=== PATIENT | male | born 1960 | race Caucasian/White ===

== ENCOUNTER → 2021-09-12 | Outpatient (CLI) | payer OTHER ==
[2021-09-12 16:59] LABS: BASOPHILS ABSOLUTE AUTO 0.06 K/mm3 (0.00-0.23); BASOPHILS PERCENT AUTO 1 % (0-2); EOSINOPHILS ABSOLUTE AUTO 0.09 K/mm3 (0.00-0.68); EOSINOPHILS PERCENT AUTO 1 % (0-6); Hematocrit 44.3 % (37.0-53.0); Hemoglobin 15.2 g/dL (13.5-17.5); IMMATURE GRAN ABSOLUTE AUTO 0.02 K/mm3 (0.00-0.10); IMMATURE GRAN PERCENT AUTO 0 % (0-1); LYMPHOCYTES ABSOLUTE AUTO 2.83 K/mm3 (0.84-5.20); LYMPHOCYTES PERCENT AUTO 34 % (21-46); MONOCYTES ABSOLUTE AUTO 0.43 K/mm3 (0.16-1.47); MONOCYTES PERCENT AUTO 5 % (4-13); Mean Corpuscular HGB 29.5 pg (26.0-34.0); Mean Corpuscular HGB Conc 34.3 g/dL (31.5-36.5); Mean Corpuscular Volume 86 fL (80-100); Mean Platelet Volume 11.2 fL (9.1-12.4); NEUTROPHILS ABSOLUTE AUTO 4.99 K/mm3 (1.96-9.15); NEUTROPHILS PERCENT AUTO 59 % (41-73); Platelet Count 268 K/mm3 (150-400); RDW Coefficient Variation 12.8 % (11.7-14.2); Red Blood Cell Count 5.15 M/mm3 (4.30-5.90); White Blood Cell Count 8.42 K/mm3 (4.00-11.30)
[2021-09-12 19:12] LABS: Alanine Aminotransfer (ALT/SGP 27 U/L (12-78); Albumin/Globulin Ratio 0.9 (0.8-1.8); Alk Phos 117 U/L (50-136); Anion Gap 5 mmol/L (6-16); Aspartate Aminotrans (AST/SGOT 16 U/L (12-37); Bilirubin, Total 0.5 mg/dL (0.1-1.0); Blood Urea Nitrogen 15 mg/dL (8-24); Bun/Creatinine Ratio 18.8 (12.0-20.0); CHOL/HDL RATIO 4.6; CO2, Blood 25 mmol/L (21-32); Calcium, Blood 9.7 mg/dL (8.5-10.1); Chloride, Blood 105 mmol/L (98-108); Cholesterol 261 mg/dL (50-200); Globulin, Blood 4.3 g/dL (2.2-4.0); Glomerular Filtration Rate 99 (60-); Glucose, Blood 163 mg/dL (70-99); HDL Cholesterol 57 mg/dL (>39); LDL/HDL RATIO 3.1; Low Density Lipoprotein Chol 178 mg/dL (0-110); Potassium, Blood 4.1 mmol/L (3.5-5.5); Sodium, Blood 135 mmol/L (136-145); Total Protein, Blood 8.3 g/dL (6.4-8.2); Triglycerides 130 mg/dL (30-160); Very Low Density Lipoprot Chol 26 mg/dL (6-32)
== END | disposition home or self-care (01) ==
LOC: LAB SHORT 12:21 → LAB 12:21
PROVIDERS: Family Medicine
DX: Z00.00 Encounter for general adult medical examination without abnormal findings (principal); Z13.6 Encounter for screening for cardiovascular disorders; E11.65 Type 2 diabetes mellitus with hyperglycemia
CPT/HCPCS: 80053; 80061; 85025

== ENCOUNTER → 2022-07-15 | Outpatient (CLI) | payer OTHER ==
[2022-07-15 15:45] LABS: BASOPHILS ABSOLUTE AUTO 0.07 K/mm3 (0.00-0.23); BASOPHILS PERCENT AUTO 1 % (0-2); EOSINOPHILS ABSOLUTE AUTO 0.16 K/mm3 (0.00-0.68); EOSINOPHILS PERCENT AUTO 2 % (0-6); Hematocrit 39.3 % (37.0-53.0); Hemoglobin 13.2 g/dL (13.5-17.5); IMMATURE GRAN ABSOLUTE AUTO 0.03 K/mm3 (0.00-0.10); IMMATURE GRAN PERCENT AUTO 0 % (0-1); LYMPHOCYTES ABSOLUTE AUTO 2.32 K/mm3 (0.84-5.20); LYMPHOCYTES PERCENT AUTO 29 % (21-46); MONOCYTES ABSOLUTE AUTO 0.45 K/mm3 (0.16-1.47); MONOCYTES PERCENT AUTO 6 % (4-13); Mean Corpuscular HGB 29.9 pg (26.0-34.0); Mean Corpuscular HGB Conc 33.6 g/dL (31.5-36.5); Mean Corpuscular Volume 89 fL (80-100); Mean Platelet Volume 11.8 fL (9.1-12.4); NEUTROPHILS ABSOLUTE AUTO 4.98 K/mm3 (1.96-9.15); NEUTROPHILS PERCENT AUTO 62 % (41-73); Platelet Count 280 K/mm3 (150-400); RDW Coefficient Variation 13.2 % (11.7-14.2); RDW Standard Deviation 43.3 fL (35.1-46.3); Red Blood Cell Count 4.42 M/mm3 (4.30-5.90); White Blood Cell Count 8.01 K/mm3 (4.00-11.30)
[2022-07-15 15:51] LABS: Albumin, Blood 3.6 g/dL (3.4-5.0); Alk Phos 110 U/L (50-136); Anion Gap 5 mmol/L (6-16); Aspartate Aminotrans (AST/SGOT 16 U/L (12-37); Bilirubin, Total 0.5 mg/dL (0.1-1.0); Blood Urea Nitrogen 19 mg/dL (8-24); CHOL/HDL RATIO 4.6; CO2, Blood 25 mmol/L (21-32); Calcium, Blood 9.2 mg/dL (8.5-10.1); Chloride, Blood 107 mmol/L (98-108); Cholesterol 221 mg/dL (50-200); Globulin, Blood 3.7 g/dL (2.2-4.0); Glucose, Blood 389 mg/dL (70-99); HDL Cholesterol 48 mg/dL (>39); LDL/HDL RATIO 2.8; Low Density Lipoprotein Chol 135 mg/dL (0-110); PSA, %Free 18.1 %; PSA, Free 0.394 ng/mL; Potassium, Blood 4.3 mmol/L (3.5-5.5); Sodium, Blood 137 mmol/L (136-145); Total Protein, Blood 7.3 g/dL (6.4-8.2); Triglycerides 189 mg/dL (30-160); Very Low Density Lipoprot Chol 37 mg/dL (6-32)
[2022-07-15 15:56] LABS: Alanine Aminotransfer (ALT/SGP 25 U/L (12-78); Creatinine, Blood 0.95 mg/dL (0.60-1.20); Glomerular Filtration Rate 89 (60-)
[2022-07-15 16:22] LABS: Microalb/Creat Ratio UR, Rand 23.66 mg/g (0.000-30.000); Microalbumin, Random Urine 45.9 mg/L (0.000-20.000)
[2022-07-15 17:47] LABS: U Amphetamine Screen Not Detected; U Barbituate Screen Not Detected; U Benzodiazapine Screen Not Detected; U Buprenorphine Screen Not Detected; U Cannabinoids Screen Not Detected; U Cocaine Screen Not Detected; U Methadone Screen Not Detected; U Methamphetamine Screen Not Detected; U Opiates Screen Not Detected; U Oxycodone Screen Not Detected; U Phencyclidine Screen Not Detected; U Propoxyphene Screen Not Detected
== END | disposition home or self-care (01) ==
LOC: LAB 13:36 → LAB SHORT 13:36
PROVIDERS: Nurse Practitioner Family
DX: E11.42 Type 2 diabetes mellitus with diabetic polyneuropathy (principal); N40.1 Benign prostatic hyperplasia with lower urinary tract symptoms; Z79.899 Other long term (current) drug therapy
CPT/HCPCS: 80053; 80061; 82043; 82570; 84153; 84154; 85025

== ENCOUNTER 2023-07-21 12:04 | Day surgery (SDC) | payer OTHER ==
[~2023-07-21] VITALS: Ht 177.8 cm; Wt 98.8 kg
[~2023-07-21 12:04] MED LIST: Atropine Sulfate 0.1 MG/ML 10ML SYR ONE; Glycopyrrolate 0.2 MG/ML 1MLVIAL ONE; Lactated Ringer's 1,000 ML IV ONE; Lidocaine 2% 5 ML SDV ONE; Lidocaine HCl/Pf 1% 5 ML VIAL ONE; Methylene Blue 1% 100 MG/10 ML VIAL ONE; Ondansetron HCl 2 MG / ML 2ML Vial ONE; ePHEDrine Sulfate 50 MG/ML 1ML Injection ONE; propofoL 20 ML IV ONE; propofoL 40 ML IV ONE
[2023-07-21] MEDS ORDERED: ASPI81CH (13:08)
[2023-07-21] MEDS ORDERED: GABA300 (13:09)
[2023-07-21] MEDS ORDERED: Vitamin B-12100 MCG (13:09)
[2023-07-21] MEDS ORDERED: ERGO400 (13:09)
[2023-07-21] MEDS ORDERED: TRAM50 (13:10)
[2023-07-21] MEDS ORDERED: [UNRECOGNIZED DRUG - OTHER] (13:10)
[2023-07-21] MEDS ORDERED: INSULANPEN (13:10)
[2023-07-21] MEDS ORDERED: Lactated Ringer's 1,000 ML IV ONE (13:30)
[2023-07-21 15:18] VITALS: BP 111/82
== END 2023-07-21 15:20 | disposition home or self-care (01) ==
LOC: ORSCSDS 12:04
PROVIDERS: Surgery
PROC: 0DBK8ZX Excision of Ascending Colon, Via Natural or Artificial Opening Endoscopic, Diagnostic (ICD-10-PCS; principal; 2023-07-21 14:00)
PROC: 0DB48ZX Excision of Esophagogastric Junction, Via Natural or Artificial Opening Endoscopic, Diagnostic (ICD-10-PCS; principal; 2023-07-21 14:00)
PROC: 0DBN8ZX Excision of Sigmoid Colon, Via Natural or Artificial Opening Endoscopic, Diagnostic (ICD-10-PCS; principal; 2023-07-21 14:00)
PROC: 0DBL8ZX Excision of Transverse Colon, Via Natural or Artificial Opening Endoscopic, Diagnostic (ICD-10-PCS; principal; 2023-07-21 14:00)
PROC: 0DB68ZX Excision of Stomach, Via Natural or Artificial Opening Endoscopic, Diagnostic (ICD-10-PCS; principal; 2023-07-21 14:00)
DX: K62.5 Hemorrhage of anus and rectum (principal); D12.2 Benign neoplasm of ascending colon; D12.3 Benign neoplasm of transverse colon; K63.5 Polyp of colon; K57.30 Diverticulosis of large intestine without perforation or abscess without bleeding; K22.70 Barrett's esophagus without dysplasia; K29.70 Gastritis, unspecified, without bleeding; R10.13 Epigastric pain; R19.4 Change in bowel habit; K64.8 Other hemorrhoids; I10 Essential (primary) hypertension; I50.9 Heart failure, unspecified; E11.65 Type 2 diabetes mellitus with hyperglycemia; Z79.82 Long term (current) use of aspirin; Z79.4 Long term (current) use of insulin; Z79.899 Other long term (current) drug therapy; Z87.891 Personal history of nicotine dependence
CPT/HCPCS: 82947; 88305; 88342; J0461; J2001; J2405; J2704; J7120; Q9968